=== PATIENT | male | born 1960 | race African-American/Black ===

== ENCOUNTER 2020-10-24 15:26 | Emergency (ER) | payer MEDICARE, MEDICAID ==
[2020-10-24] MEDS ORDERED: Lidocaine 1% PF 5 ML VIAL ONE ×3 (15:49→17:25)
[2020-10-24] MEDS ORDERED: Bupivacaine 0.5% 10 ML VIAL ONE ×3 (15:49→17:25)
[2020-10-24] MEDS ORDERED: Triple Antibiotic Oint 1 GM Packet ONE (18:04)
== END 2020-10-24 18:48 | disposition home or self-care (01) ==
LOC: ERS 15:26
DX: S68.113A Complete traumatic metacarpophalangeal amputation of left middle finger, initial encounter (principal); S68.115A Complete traumatic metacarpophalangeal amputation of left ring finger, initial encounter; I10 Essential (primary) hypertension; E78.5 Hyperlipidemia, unspecified; Z79.899 Other long term (current) drug therapy; W27.0XXA Contact with workbench tool, initial encounter
CPT/HCPCS: 12002; J3490

== ENCOUNTER 2020-11-06 09:52 | Emergency (ER) | payer MEDICARE, MEDICAID ==
[2020-11-06] MEDS ORDERED: Bacitracin 1 PK ONE (10:58)
== END 2020-11-06 11:01 | disposition home or self-care (01) ==
LOC: ERS 09:52
DX: S61.215D Laceration without foreign body of left ring finger without damage to nail, subsequent encounter (principal); I10 Essential (primary) hypertension; E78.5 Hyperlipidemia, unspecified; W27.0XXD Contact with workbench tool, subsequent encounter

== ENCOUNTER 2021-08-09 14:23 | Outpatient (CLI) | payer MEDICARE, OTHER | END 2021-08-09 14:24 | disposition home or self-care (01) | LOC: LABBT 14:23 | PROVIDERS: ATTEND Internal Medicine Gastroenterology | DX: Z12.11 Encounter for screening for malignant neoplasm of colon (principal); K21.9 Gastro-esophageal reflux disease without esophagitis; Z20.822 Contact with and (suspected) exposure to COVID-19 | CPT/HCPCS: 87811 ==

== ENCOUNTER 2021-08-12 06:57 | Day surgery (SDC) | payer MEDICARE, OTHER ==
[2021-08-10 12:36] VITALS: BMI 26.4
[2021-08-12] MEDS ORDERED: PROPOFOL 200 MG/20 ML VIAL ONE (08:57)
[2021-08-12] MEDS ORDERED: Lidocaine 1% PF 5 ML VIAL ONE (09:04)
== END 2021-08-12 10:45 | disposition home or self-care (01) ==
LOC: SDC 06:57
PROVIDERS: ATTEND Internal Medicine Gastroenterology
PROC: 0DBM8ZZ Excision of Descending Colon, Via Natural or Artificial Opening Endoscopic (ICD-10-PCS; principal; 2021-08-12)
PROC: 0DB58ZX Excision of Esophagus, Via Natural or Artificial Opening Endoscopic, Diagnostic (ICD-10-PCS; 2021-08-12)
DX: Z12.11 Encounter for screening for malignant neoplasm of colon (principal); D12.4 Benign neoplasm of descending colon; K21.9 Gastro-esophageal reflux disease without esophagitis; K31.89 Other diseases of stomach and duodenum; K64.9 Unspecified hemorrhoids; I10 Essential (primary) hypertension; E78.5 Hyperlipidemia, unspecified; K25.9 Gastric ulcer, unspecified as acute or chronic, without hemorrhage or perforation; Z79.899 Other long term (current) drug therapy
CPT/HCPCS: 88305; J2704